=== PATIENT | male | born 1975 | race Two or more races ===

== ENCOUNTER 2024-08-29 00:07 | Day surgery (SDC) | payer OTHER, SELFPAY ==
[2024-08-23 11:15] VITALS: BMI 25.4
[2024-08-29 07:50] VITALS: BP 111/81; PULSE 93; RESP 18; TEMP 36.2; O2SAT 100
[2024-08-29] MEDS: LACTATED RINGERS 1,000 ML 150 ML IV CONT (07:58)
--- NOTE | 2024-08-29 08:55 | P.HP_ITS ---
H&P: HPI History of Present Illness Date/Time: 08/29/24 08:55 Chief Complaint: GERD, history of colon polyps Narrative: this is a 48-year-old man who presents for colonoscopy and EGD. He does suffer from GERD symptoms, but symptoms have been better lately. He is not currently on any antacids. He denies any hematemesis. He had a colonoscopy 5 years ago and several polyps were removed. He denies family history of colon cancer or hematochezia/ melena. Review of Systems Review of Systems: All systems reviewed & are unremarkable except as noted in HPI and below Constitutional: Constitutional: Denies chills, Denies fever(s), Denies headache(s) and Denies weight loss Eyes: Eyes: Denies change in vision ENT: Denies dizziness, Denies headache(s), Denies neck mass and Denies throat swelling Cardiovascular: Cardiovascular: Denies chest pain, Denies lightheadedness and Denies dyspnea Respiratory: Respiratory: Denies cough, Denies dyspnea and Denies wheezing Gastrointestinal: Gastrointestinal: Denies abdominal pain, Denies change in bowel habits, Denies nausea and Denies vomiting Genitourinary: Genitourinary: Denies hematuria and Denies dysuria Musculoskeletal: Musculoskeletal: Reports as per HPI Integumentary/Breasts: Skin/Breast: Reports as per HPI Neurologic: Denies dizziness and Denies headache(s) Allergic/Immunologic: Allergic/Immunologic: Denies throat swelling and Denies wheezing [facility] Social History Social History Living arrangements: incarcerated Meds Home Medications and Allergies Home Medications Medication Instructions Recorded Confirmed Type No Home Medications 08/23/24 08/29/24 History Allergies Allergy/AdvReac Type Severity Reaction Status Date / Time No Known Allergies Allergy Verified 08/29/24 07:49 Vital Signs Vital Signs - 24 hr 08/29/24 07:50 Temperature 97.2 F L Pulse Rate 93 Respiratory Rate 18 Blood Pressure 111/81 Pulse Oximetry 100 Oxygen Delivery Room Air Exam Const: General: no acute distress and alert Orientation/consciousness: patient oriented x3 HENMT: Head: normocephalic and atraumatic Ears: hearing grossly normal bilaterally Face/Nose/Sinus: Normal nares present Mouth: Yes Normal oral and palatal mucosa present Eyes: Periorbital: periorbital findings normal Sclera: sclerae normal EOM: EOMs intact bilaterally Neck: Neck: normal visual inspection, no lymphadenopathy and trachea midline Chest: Chest palpation & inspection: normal inspection of the chest Resp: Effort & Inspection: normal respiratory effort Auscultation: clear to auscultation bilaterally Cardio: Jugular venous distension: no JVD Rate: regular rate Rhythm: regular rhythm Heart sounds: S1 normal heart sound present and S2 normal heart sound present Peripheral pulses: Peripheral pulses 2+ throughout GI: Inspection: normal to inspection GI Palp: Yes Soft to palpation, No Tenderness to palpation present (GI), No Guarding due to palpation present (GI) and No Rebound tenderness present Percussion: Yes normal to percussion Auscultation: normal bowel sounds : General: Yes no CVA tenderness Back/Spine/Pelvis: Back: no CVA tenderness Neuro: General: patient oriented x3, no focal motor deficits and CN's II-XI intact bilaterally Cognition (Neuro): normal cognition Speech: normal speech Motor exam (neuro): 5/5 motor strength present throughout Extrem: General: capillary refill normal and no clubbing, cyanosis or edema Assessment and Plan Assessment and plan (1) GERD (gastroesophageal reflux disease): Code(s): K21.9 - Gastro-esophageal reflux disease without esophagitis Status: Acute Assessment and Plan: I have recommended EGD and colonoscopy. I have discussed the procedure, risks, benefits, and alternatives. Questions were answered. Patient is agreeable to proceed. (2) Hx of colonic polyps: Code(s): Z86.0100 - Personal history of colon polyps, unspecified Status: Acute
--- NOTE | 2024-08-29 09:01 | WPDANESEPPF ---
Anes - Initial Pre Proc Eval Procedure: Operation Date: 08/29/24 09:00 Proposed Procedures p Esophagogastroduodenoscopy & Colonoscopy - Biju Phillips DO Date/Time: 08/29/24 09:01 Surgeon: Biju Phillips DO Pre Op Diagnosis: GERD, Prior history of colon polyps Patient Data Age: 48 Gender: M Height: 1.88 m Weight: 79.7 kg Last Vital Signs Temp 97.2 F L 08/29/24 07:50 Pulse 93 08/29/24 07:50 Resp 18 08/29/24 07:50 BP 111/81 08/29/24 07:50 Pulse Ox 100 08/29/24 07:50 O2 Del Method Room Air 08/29/24 07:50 Allergies Allergy/AdvReac Type Severity Reaction Status Date / Time No Known Allergies Allergy Verified 08/29/24 07:49 Home Medications Medication Instructions Recorded Confirmed Type No Home Medications 08/23/24 08/29/24 History Patient hx anesthesia problems: none Family hx anesthesia problems: none Results Review: All pre-operative results and documents have been reviewed as part of the pre-operative evaluation. [facility] Social History Social History Living arrangements: incarcerated Anes - Eval Final PreProcedure Day of Procedure 08/29/24 09:01 Patient weight: normal Heart: regular rate and rhythm Lungs: clear to auscultation Airway: Mallampati scale class II Neurological: alert and oriented Last oral intake: >/= 8 hours ASA classification: II Emergent: no Anesthetic plan: proceed Anesthesia type and monitoring: general GIVS and standard monitoring Results Review: All pre-operative results and documents have been reviewed as part of the pre-operative evaluation. Informed Consent: The patient's anesthetic plan and its attendant risks and benefits were discussed with the patient/family/POA. Questions were solicited and answers provided to the satisfaction of the patient/family/POA.
--- NOTE | 2024-08-29 09:14 | SUR.OPER ---
EGD start 905 end 908, Colonoscopy start 913.
[2024-08-29 09:31] VITALS: BP 91/58; PULSE 89; RESP 16; O2SAT 99
[2024-08-29 09:41] VITALS: BP 101/68; PULSE 81; RESP 20; O2SAT 100
[2024-08-29 09:51] VITALS: BP 106/77; PULSE 77; RESP 17; O2SAT 100
== END 2024-08-29 10:00 | disposition home or self-care (01) ==
PROVIDERS: PCP Internal Medicine; Visit Provider Surgery
PROC: 0DJ08ZZ Inspection of Upper Intestinal Tract, Via Natural or Artificial Opening Endoscopic (ICD-10-PCS; CPT 43235; principal; 2024-08-29 09:00)
DX: Z12.11 Encounter for screening for malignant neoplasm of colon (principal); K21.9 Gastro-esophageal reflux disease without esophagitis; D12.8 Benign neoplasm of rectum; K57.30 Diverticulosis of large intestine without perforation or abscess without bleeding
CPT/HCPCS: 43235; 45380; 88305; J2003; J2704; J7120